=== PATIENT | female | born 1985 | race Asian ===

== ENCOUNTER → 2017-01-04 | Outpatient (CLI) | payer OTHER ==
[2017-01-06 11:24] LABS: HEPATITIS C AB SCREEN <0.1 s/co ratio (0.0-0.9)
[2017-01-07 19:35] LABS: HERPES SIMPLEX VIRUS-1 BY PCR Negative (Negative); HERPES SIMPLEX VIRUS-2 BY PCR Negative (Negative)
== END | disposition home or self-care (01) ==
LOC: LABMN 16:00
PROVIDERS: ATTEND Obstetrics & Gynecology
DX: Z11.3 Encounter for screening for infections with a predominantly sexual mode of transmission (principal)
CPT/HCPCS: 86592; 86803; 87340; 87389; 87529

== ENCOUNTER 2017-12-24 05:37 | Day surgery (SDC) | payer OTHER ==
[~2017-12-24] VITALS: Ht 154.9 cm; Wt 53.2 kg
[~2017-12-24 05:37] MED LIST: CeFAZolin 1 GM/DEXTROSE 50 ML IV ONE; RINGERS SOLUTION,LACTATED 1,000 ML IV ONE
[2017-12-24] MEDS ORDERED: 0.9% SODIUM CHLORIDE 10 ML VIAL IVP ONE (05:38)
[2017-12-24] MEDS ORDERED: LIDOCAINE HCL/PF 2% 5 ML VIAL IM ONE (05:38)
[2017-12-24] MEDS ORDERED: PROPOFOL 1% 20 ML VIAL IVP ONE (05:38)
[2017-12-24] MEDS ORDERED: RINGERS SOLUTION,LACTATED 1,000 ML IV ONE (06:00)
[2017-12-24 06:09] LABS: EOSINOPHILS % (AUTO) 2.4 % (1.0-6.0); HEMATOCRIT 40.2 % (36-46); HEMOGLOBIN 13.8 g/dL (12.0-16.0); LYMPHOCYTES # (AUTO) 3.3 K/uL (1.0-4.8); LYMPHOCYTES % (AUTO) 35.2 % (22.0-44.0); MEAN CORPUSCULAR HEMOGLOBIN 31.6 pg (26.0-34.0); MEAN CORPUSCULAR HGB CONC 34.4 G/dL (31.0-37.0); MEAN CORPUSCULAR VOLUME 92 fL (80-100); MONOCYTES # (AUTO) 0.6 K/uL (0.1-1.0); MONOCYTES % (AUTO) 6.1 % (2.0-9.0); NEUTROPHILS # (AUTO) 5.1 K/uL (1.8-7.7); NEUTROPHILS % (AUTO) 55.3 % (40.0-70.0); PLATELET COUNT (AUTO) 403 K/uL (150-450); RED BLOOD CELL COUNT(AUTO) 4.38 MIL/uL (4.00-5.20); RED CELL DISTRIBUTION WIDTH 13.1 % (11.5-14.5)
[2017-12-24 06:17] LABS: ANION GAP 8 mmol/L (8-16); CALCIUM, TOTAL 8.6 mg/dL (8.8-10.5); CARBON DIOXIDE 27 mmol/L (22-29); CHLORIDE 103 mmol/L (98-107); CREATININE 0.86 mg/dL (0.60-1.30); GLOMERULAR FILTR. RATE CALC > 60 mL/min (>60); GLUCOSE,RANDOM 89 mg/dL (70-110); POTASSIUM 4.3 mmol/L (3.5-5.1); SODIUM SERUM 138 mmol/L (136-145); UREA NITROGEN, BLOOD 16 mg/dL (7-18)
[2017-12-24 06:24] LABS: PROTHROMBIN TIME 10.3 SEC (9.4-11.6)
[2017-12-24 06:25] LABS: ALANINE AMINOTRANSFERASE 31 U/L (12-78); ALBUMIN 3.7 g/dL (3.4-5.0); ALKALINE PHOSPHATASE 90 U/L (46-116); BILIRUBIN,TOTAL 0.2 mg/dL (0.1-1.0); TOTAL PROTEIN, SERUM 7.6 g/dL (6.4-8.2)
[2017-12-24] MEDS ORDERED: SILVER NITRATE APPLICATOR 1 EA STICK TP ONE (06:50)
[2017-12-24] MEDS ORDERED: SILVER SULFADIAZINE 1% 25 GM CREAM TP ONE (06:50)
[2017-12-24] MEDS ORDERED: VASOPRESSIN 20 UNITS/ML VIAL ONE (06:51)
[2017-12-24] MEDS ORDERED: SODIUM CHLORIDE 0.9% 0 ML ONE (06:52)
[2017-12-24] MEDS ORDERED: CeFAZolin 1 GM/DEXTROSE 50 ML IV ONE (07:00)
[2017-12-24] MEDS ORDERED: PROPOFOL 1000 MG/ISO-OSM 100 ML IV ONE (07:02)
[2017-12-24 07:52] LABS: ASPARTATE AMINOTRANSFERASE 22 U/L (15-37)
[2017-12-24] MEDS ORDERED: SODIUM CHLORIDE 0.9% 100 ML ONE (07:55)
[2017-12-24] MEDS ORDERED: LIDOCAINE HCL 1%/EPI 1:200,000/PF 30 ML VIAL ONE (08:10)
[2017-12-24] MEDS ORDERED: FentaNYL CITRATE-PF 100 MCG/2 ML VIAL ONE (09:02)
[2017-12-24] MEDS ORDERED: ACETAMINOPHEN 1000 MG/ISO-OSM 100 ML IV ONE (09:07)
[2017-12-24] MEDS ORDERED: ACETAMINOPHEN 1000 MG/ISO-OSM 100 ML IV SCH (09:15)
[2017-12-24] MEDS ORDERED: MEPERIDINE-PF 25 MG/ML SYRINGE IVP PRN (09:15)
[2017-12-24] MEDS ORDERED: HYDROmorphone 2 MG/ML SYRINGE IVP PRN (09:15)
[2017-12-24] MEDS ORDERED: FentaNYL CITRATE-PF 100 MCG/2 ML VIAL IVP PRN (09:15)
[2017-12-24] MEDS ORDERED: FentaNYL CITRATE-PF 100 MCG/2 ML VIAL IVP ONE (12:00)
[2017-12-24] MEDS ORDERED: MIDAZOLAM HCL 2 MG/2 ML VIAL IVP ONE (12:00)
== END 2017-12-24 10:35 | disposition home or self-care (01) ==
LOC: SURGERY 05:37
PROVIDERS: ATTEND Obstetrics & Gynecology
DX: D06.0 Carcinoma in situ of endocervix (principal); N72 Inflammatory disease of cervix uteri; F17.210 Nicotine dependence, cigarettes, uncomplicated; Z72.89 Other problems related to lifestyle; Z79.3 Long term (current) use of hormonal contraceptives
CPT/HCPCS: 36415; 57522; 80053; 84703; 85025; 85610; 85730; 88305; 88307; 88342; J0131; J0690; J2250; J2704 ×2; J3010; J3490 ×2; J7050; J7120; 88341

== ENCOUNTER 2020-02-14 11:04 | Emergency (ER) | payer OTHER ==
[~2020-02-14] VITALS: Ht 162.6 cm; Wt 59.1 kg
[2020-02-14 11:11] VITALS: BP 126/76
[2020-02-14] MEDS ORDERED: ERYT3.5O8 OU (11:25)
[2020-02-14] MEDS ORDERED: NEOMYCIN/BACITRACIN/POLYMYXIN/HYDROCORT 3.5 GM OPHTHALMIC OINTMENT OU ONE (13:45)
[2020-02-14] MEDS ORDERED: DEXAMETHASONE SOD PHOS 4 MG/ML 5 ML VIAL IM ONE (13:45)
== END 2020-02-14 14:38 | disposition home or self-care (01) ==
LOC: EMS 11:08
DX: H01.001 Unspecified blepharitis right upper eyelid (principal); H01.004 Unspecified blepharitis left upper eyelid; L73.9 Follicular disorder, unspecified; R03.0 Elevated blood-pressure reading, without diagnosis of hypertension; F17.210 Nicotine dependence, cigarettes, uncomplicated
CPT/HCPCS: 96372; 99283; J1100